=== PATIENT | female | born 1935 | race Caucasian/White ===

== ENCOUNTER 2016-06-16 18:52 | Emergency (ER) | payer MEDICARE, BC ==
[2016-06-16 18:56] VITALS: TEMP 98.4
[2016-06-16 19:13] VITALS: BMI 41.5
[2016-06-16 20:18] LABS: CA OXALATE 3+; LEUKOCYTES/URINE 2+ (NEGATIVE); NITRITE/URINE NEG (NEGATIVE); URINE OCCULT BLOOD 2+ (NEG/TRACE)
[2016-06-16 20:19] LABS: WBC/URINE 40-50 (0-5)
--- NOTE | 2016-06-16 20:26 | EDPRACDOC ---
- General Information Chief Complaint: Altered Mental Status Stated Complaint: HIGH BP - SENT BY HOME HEALTH RN Time Seen by Provider: 06/16/16 19:22 Home Medications: Home Medications Ergocalciferol (Vitamin D2) [Vitamin D2 (ergocalciferol)] 50,000 units PO .QMONTH ON 01/28/13 Nitroglycerin Sublingual Tab [NTG (NitroStat Sublingual Tab)] 1 tab SL Q5MX3 PRN 04/09/13 Furosemide [Lasix] 40 mg PO BID 06/20/13 Pantoprazole Sodium [Protonix] 40 mg PO DAILY #30 tab 07/03/13 Allopurinol [Zyloprim] 100 mg PO DAILY 06/16/16 Alprazolam [Xanax] 0.5 mg PO BID PRN 06/16/16 Aspirin (Enteric Coated) [Ecotrin] 81 mg PO DAILY 06/16/16 Ciprofloxacin HCl [Cipro] 500 mg PO BID #20 tab 06/16/16 Duloxetine [Cymbalta] 60 mg PO DAILY 06/16/16 HydrALAZINE (Cardiovascular) [Apresoline] 50 mg PO DAILY 06/16/16 Levetiracetam [Keppra] 500 mg PO BID 06/16/16 METHIMAZOLE (hyperthyroid med) [Tapazole] 5 mg PO DAILY 06/16/16 Metoprolol Succinate (XL) [Toprol Xl] 100 mg PO DAILY 06/16/16 Oxycodone Immediate Release [Oxycodone Immediate Release (OxyIR)] 5 mg PO Q4H PRN 06/16/16 Polyethylene Glycol 3350 [Miralax] 17 gm PO DAILY PRN 06/16/16 Trazodone HCl [Desyrel] 25 mg PO QHS 06/16/16 Valsartan [Diovan] 160 mg PO DAILY 06/16/16 Wheat Dextrin [Benefiber] 1 gm PO DAILY 06/16/16 Allergies/Adverse Reactions: Allergies Allergy/AdvReac Type Severity Reaction Status Date / Time No Known Allergies Allergy Verified 06/16/16 19:06 - History of Present Illness Onset: a while HPI: C/o confusion, changes in vision, frontal HYATT, upper sternal CP radiating into neck (bilat), weakness x 2 days. Denies N/V/D, fever, sob, cough, sore throat, chnages in urine or BM. Med hx = CHF, CAD, prior OK. Home O2 05/12 at 2L. Last stress test on file here is 2012. Symptoms began: Gradually Duration: Since Onset Symptoms Currently: Reports: Still Present Altered Quality: Reports: Confusion Altered Severity: Reports: Mild Recent Symptoms of: Reports: None Associated signs and symptoms: Reports: Chest pain, Headache, Weakness ED Past Medical History - History Reviewed Yes Nurses notes reviewed and agree except as marked - Patient Medical History Cardiac History: Reports: Coronary Artery Disease, Atrial Fibrillation, Hypertension, Heart Attack (MULTIPLE CORONARY STENOSIS), Cardiac Catheterization , Hypercholesterolemia GI/ History: Reports: Kidney Stones (HX AND PRESENT NOW), Ulcer (HX) Musculoskeletal History: Reports: Gout, Osteoarthritis Systemic History: Reports: Diabetes, Hyperthyroidism. Denies: Cancer Surgical History: Reports: Hysterectomy, Cardiac Catheterization - Family Medical History Reports: Diabetes (SISTER), Cancer (MOTHER), Cardiac Disorders (DAD). Denies: Hypertension, Stroke EDM Review of Systems - Review of Systems ROS Negative Except as Marked: Yes All systems reviewed and were negative except as marked Constitutional: Weakness Cardiovascular: Chest Pain Neurological: Headache, Weakness, Memory Changes, Changes in Orientation - Physical Exam Constitutional: No apparent distress, Alert Oriented to: Time, Person, Place Last recorded Vital Signs: Last Vital Signs Temp 98.4 F 06/16/16 18:55 Pulse 60 06/16/16 18:55 Resp 18 06/16/16 18:55 BP 208/93 H 06/16/16 18:55 Pulse Ox 91 06/16/16 18:55 Oxygen Pulse Oxygen Saturation 91 O2 Device Nasal Cannula Oxygen Flow Rate 2 Fraction of Inspired Oxygen ( FIO2) - HEENT Head: Normal Eye Exam: negative: Conjunctival Injection, Scleral Icterus Oropharynx: negative: Drooling TMJ: Normal Nose: No Symptoms Reported Neck: Normal - Respiratory/Cardiovascular Respiratory: Normal - CTA Cardiovascular: Normal - GI Tenderness: Non tender - Musculoskeletal Back: Normal Extremities: Normal - Neurologic Motor Function: Normal Cranial Nerve: Normal Cerebellar: Normal Mood Description: Normal Thought: Coherent Perception: Normal - Results 06/16/16 20:15 06/16/16 20:15 Urine Color Dark yellow 06/16/16 20:00 Urine Clarity Sl cldy 06/16/16 20:00 Urine pH 6.0 (5.0-8.0) 06/16/16 20:00 Ur Specific [place] 1.025 (1.003-1.035) 06/16/16 20:00 Urine Protein 2+ (NEG/TRACE) H 06/16/16 20:00 Urine Glucose (UA) Trace (NEGATIVE) 06/16/16 20:00 Urine Ketones Neg (NEGATIVE) 06/16/16 20:00 Urine Occult Blood 2+ (NEG/TRACE) H 06/16/16 20:00 Urine Nitrite Neg (NEGATIVE) 06/16/16 20:00 Urine Bilirubin Neg (NEGATIVE) 06/16/16 20:00 Urine Urobilinogen <2.0 MG/DL (0-1) 06/16/16 20:00 Ur Leukocyte Esterase 2+ (NEGATIVE) H 06/16/16 20:00 Urine RBC 10-20 (0-5) H 06/16/16 20:00 Urine WBC 40-50 (0-5) H 06/16/16 20:00 Ur Epithelial Cells 2+ 06/16/16 20:00 Calcium Oxalate Crystal 3+ 06/16/16 20:00 Urine Bacteria 1+ (NEG/FEW) H 06/16/16 20:00 Urine Mucus Mod (NEG/OCC) H 06/16/16 20:00 Lab Results 06/16/16 20:00 Urine Color Dark yellow Urine Clarity Sl cldy Urine pH 6.0 Ur Specific [place] 1.025 Urine Protein 2+ H Urine Glucose (UA) Trace Urine Ketones Neg Urine Occult Blood 2+ H Urine Nitrite Neg Urine Bilirubin Neg Urine Urobilinogen <2.0 Ur Leukocyte Esterase 2+ H Urine RBC 10-20 H Urine WBC 40-50 H Ur Epithelial Cells 2+ Calcium Oxalate Crystal 3+ Urine Bacteria 1+ H Urine Mucus Mod H - Diagnostic Imaging Chest Image interpreted by: Radiologist EXAM: PORTABLE CHEST 1 VIEW COMPARISON: Single view of the chest 04/12/2016. FINDINGS: There is cardiomegaly without edema. Lungs clear. No pneumothorax or pleural effusion. IMPRESSION: Cardiomegaly without acute disease. Electronically Signed By: Clayton Johns M.D. On: 06/16/2016 20:24 Head Image interpreted by: Radiologist EXAM: CT HEAD WITHOUT CONTRAST TECHNIQUE: Contiguous axial images were obtained from the base of the skull through the vertex without intravenous contrast. COMPARISON: 04/12/2016 FINDINGS: Focal hypoattenuation in the posterior left parietal lobe reflects the evolution non left parietal hemorrhage noted on the prior CT. There are no parenchymal masses or mass effect. There is no evidence of a recent cortical infarct. Ventricles are normal in size, for this patient's age, and normal in configuration. There are no extra-axial masses or abnormal fluid collections. There is no intracranial hemorrhage. Sinuses and mastoid air cells are clear. IMPRESSION: 1. No acute intracranial abnormalities. Electronically Signed By: Yaya Barrientos M.D. On: 06/16/2016 20:33 Decision Time to Discharge: 21:00 - Departure Disposition: Home Condition: Stable Final Diagnosis: UTI (urinary tract infection) Qualifiers: Urinary tract infection type: site unspecified Hematuria presence: with hematuria Qualified Code(s): N39.0 - Urinary tract infection, site not specified Instructions: Urinary Tract Infection in Women (ED), Dysuria Education/Counseling Given To: Patient, Family Member Education/Counseling Given Regarding: Diagnosis, Treatment, Prognosis, Follow Up Referrals: Hammad Gregory MD [Primary Care Provider] - One Week Prescriptions: New Ciprofloxacin HCl [Cipro] 500 mg PO BID #20 tab No Action Ergocalciferol (Vitamin D2) [Vitamin D2 (ergocalciferol)] 50,000 units PO .QMONTH ON 1ST Nitroglycerin Sublingual Tab [NTG (NitroStat Sublingual Tab)] 1 tab SL Q5MX3 PRN PRN Reason: Chest Pain Or Discomfort Furosemide [Lasix] 40 mg PO BID Pantoprazole Sodium [Protonix] 40 mg PO DAILY #30 tab Valsartan [Diovan] 160 mg PO DAILY Levetiracetam [Keppra] 500 mg PO BID Aspirin (Enteric Coated) [Ecotrin] 81 mg PO DAILY Trazodone HCl [Desyrel] 25 mg PO QHS Polyethylene Glycol 3350 [Miralax] 17 gm PO DAILY PRN PRN Reason: Constipation HydrALAZINE (Cardiovascular) [Apresoline] 50 mg PO DAILY Duloxetine [Cymbalta] 60 mg PO DAILY Allopurinol [Zyloprim] 100 mg PO DAILY Metoprolol Succinate (XL) [Toprol Xl] 100 mg PO DAILY METHIMAZOLE (hyperthyroid med) [Tapazole] 5 mg PO DAILY Oxycodone Immediate Release [Oxycodone Immediate Release (OxyIR)] 5 mg PO Q4H PRN PRN Reason: Pain Wheat Dextrin [Benefiber] 1 gm PO DAILY Alprazolam [Xanax] 0.5 mg PO BID PRN PRN Reason: Anxiety Additional Instructions: Follow up with primary care. Take cipro for urinary tract infection. Return to Ed for any new or worsening symptoms.
[2016-06-16 20:35] LABS: AUTOMATED LYMPH 26.7 % (17-44); AUTOMATED MONOCYTE 8.1 % (3-10); AUTOMATED NEUTROPHIL 60.2 % (45-76); MPV 8.9 fL (7.4-10.4)
--- NOTE | 2016-06-16 20:36 | DIRPT ---
CLINICAL DATA: Altered mental status. Confusion. History of a brain aneurysm. EXAM: CT HEAD WITHOUT CONTRAST TECHNIQUE: Contiguous axial images were obtained from the base of the skull through the vertex without intravenous contrast. COMPARISON: 04/12/2016 FINDINGS: Focal hypoattenuation in the posterior left parietal lobe reflects the evolution non left parietal hemorrhage noted on the prior CT. There are no parenchymal masses or mass effect. There is no evidence of a recent cortical infarct. Ventricles are normal in size, for this patient's age, and normal in configuration. There are no extra-axial masses or abnormal fluid collections. There is no intracranial hemorrhage. Sinuses and mastoid air cells are clear. IMPRESSION: 1. No acute intracranial abnormalities. Electronically Signed By: Yaya Barrientos M.D. On: 06/16/2016 20:33
[2016-06-16 20:44] LABS: BLOOD UREA NITROGEN 10 MG/DL (7-17); CALC CORRECTED 9.7 MG/DL (8.4-10.2); CALCIUM 9.3 MG/DL (8.4-10.2); CALCULATED OSMOLALITY 281 MOs/Kg (270-290); CHLORIDE 106 mEq/L (98-107); GLUCOSE 104 mg/dL (70-99); SODIUM LEVEL 147 mEq/L (137-146); TOTAL PROTEIN 6.3 G/DL (6.3-8.2)
[2016-06-16 20:48] LABS: PARTIAL THROMB. TIME 24.5 SEC (22-35)
[2016-06-16] MEDS ORDERED: CIPROFLOXACIN HCL 500 MG TAB PO ONE (21:11)
[2016-06-16 21:37] VITALS: BP 170/88; PULSE 68
== END 2016-06-16 21:35 | disposition home or self-care (01) ==
LOC: ED 18:52
DX: N39.0 Urinary tract infection, site not specified (principal); R31.9 Hematuria, unspecified
CPT/HCPCS: 36415; 70450; 71010; 80053; 81001; 84484; 85025; 85610; 85730; 87086; 93005; 99283; A9270; J3490

== ENCOUNTER 2016-06-20 16:28 | Inpatient (IN) | payer MEDICARE, BC ==
--- NOTE | 2016-06-20 16:39 | EDPRACDOC ---
- General Information Stated Complaint: AMS Time Seen by Provider: 06/20/16 16:38 Information Source: Call Center Recruiter Mode Of Arrival: Ambulance Home Medications: Home Medications Ergocalciferol (Vitamin D2) [Vitamin D2 (ergocalciferol)] 50,000 units PO .QMONTH ON 01/28/13 Nitroglycerin Sublingual Tab [NTG (NitroStat Sublingual Tab)] 1 tab SL Q5MX3 PRN 04/09/13 Furosemide [Lasix] 40 mg PO BID 06/20/13 Pantoprazole Sodium [Protonix] 40 mg PO DAILY #30 tab 07/03/13 Allopurinol [Zyloprim] 100 mg PO DAILY 06/16/16 Alprazolam [Xanax] 0.5 mg PO BID PRN 06/16/16 Aspirin (Enteric Coated) [Ecotrin] 81 mg PO DAILY 06/16/16 Ciprofloxacin HCl [Cipro] 500 mg PO BID #20 tab 06/16/16 Duloxetine [Cymbalta] 60 mg PO DAILY 06/16/16 HydrALAZINE (Cardiovascular) [Apresoline] 50 mg PO DAILY 06/16/16 Levetiracetam [Keppra] 500 mg PO BID 06/16/16 METHIMAZOLE (hyperthyroid med) [Tapazole] 5 mg PO DAILY 06/16/16 Metoprolol Succinate (XL) [Toprol Xl] 100 mg PO DAILY 06/16/16 Oxycodone Immediate Release [Oxycodone Immediate Release (OxyIR)] 5 mg PO Q4H PRN 06/16/16 Polyethylene Glycol 3350 [Miralax] 17 gm PO DAILY PRN 06/16/16 Trazodone HCl [Desyrel] 25 mg PO QHS 06/16/16 Valsartan [Diovan] 160 mg PO DAILY 06/16/16 Wheat Dextrin [Benefiber] 1 gm PO DAILY 06/16/16 Amiodarone [Cordarone, Pacerone] 200 mg PO .DAILY SEE COMMENTS 06/20/16 Allergies/Adverse Reactions: Allergies Allergy/AdvReac Type Severity Reaction Status Date / Time No Known Allergies Allergy Verified 06/16/16 19:06 - History of Present Illness Exact Onset of Symptoms: Unknown HPI: FAMILY SPOKE TO PT BY PHONE YESTERDAY, PT SEEMED CONFUSED. TODAY, NON AMBULATORY AND NON VERBAL. PT NORMALLY LIVES INDEPENDENT. ED Past Medical History - History Reviewed Yes Nurses notes reviewed and agree except as marked - Patient Medical History Neurological History: Reports: Cerebrovascular Accident (HEMORRHAGIC STROKE) Cardiac History: Reports: Coronary Artery Disease, Atrial Fibrillation, Hypertension, Heart Attack (MULTIPLE CORONARY STENOSIS), Cardiac Catheterization , Hypercholesterolemia GI/ History: Reports: Kidney Stones (HX AND PRESENT NOW), Ulcer (HX) Musculoskeletal History: Reports: Gout, Osteoarthritis Psychological History: Reports: Depression Systemic History: Reports: Diabetes, Hyperthyroidism. Denies: Cancer Surgical History: Reports: Hysterectomy, Cardiac Catheterization - Family Medical History Reports: Diabetes (SISTER), Cancer (MOTHER), Cardiac Disorders (DAD). Denies: Hypertension, Stroke - Social Medical History Smoking Status: Never smoker EDM Review of Systems - Review of Systems ROS Negative Except as Marked: Yes All systems reviewed and were negative except as marked ROS Unobtainable: Yes Review of systems cannot be obtained due to the patient's medical condition (AMS) - Physical Exam Constitutional: Confused, Decreased Consciousness, Somnolent, Well nourished Oriented to: Person, Unable to Test Last recorded Vital Signs: Oxygen Pulse Oxygen Saturation O2 Device Oxygen Flow Rate Fraction of Inspired Oxygen ( FIO2) - HEENT Head: Normal Eye Exam: Normal Oropharynx: Normal. negative: Membranes Dry Neck: Normal - Respiratory/Cardiovascular Respiratory: Normal - CTA Cardiovascular: Normal - GI Auscultation: Normal Palpation: Normal Tenderness: Non tender - Bladder: Normal - Musculoskeletal Back: Normal. negative: CVA Tenderness, Thoracic TTP, Lumbar TTP Extremities: Normal. negative: Pedal Edema - Integumentary Skin: Normal, Warm, Dry - Neurologic Memory Impaired: Unable to Test (CONFUSED) Motor Function: Other (MOVES ALL EXT) Mood Description: Flat Thought: negative: Coherent - Re-evaluation Re-evaluation 3 Re-evaluation Time: 21:15 (STILL CONFUSED, TROUBLE AMBULATING. BP STILL RISING. NOT A CANDIDATE FOR OUTPAT.) - Results 06/20/16 17:18 06/20/16 17:18 - EKG EKG #1 EKG Time: 17:17 -: Yes EKG interpreted by me Rate: bpm: 57 [place]: Normal Rhythm: SB Block: None Hypertrophy: None ST: Nonsp - Diagnostic Imaging Head Image interpreted by: Radiologist Patient Name: AUGUST VAZQUEZ LOC: ED : 1935 AGE: 81 Order Date:06/20/16 Date of Service:10/29 Report # [id number] Ord Physician: Denise Almonte MD Exam # [id number] Emergency Physician: Denise Almonte MD Exam(s): [id number] CT/CT HEAD W/O CM CLINICAL DATA: Altered mental status. Recent hemorrhagic CVA EXAM: CT HEAD WITHOUT CONTRAST TECHNIQUE: Contiguous axial images were obtained from the base of the skull through the vertex without intravenous contrast. COMPARISON: 06/16/2016 FINDINGS: Area of encephalomalacia in the left occipital lobe in area of old infarct. No acute infarction. No hemorrhage or hydrocephalus. No mass lesion or midline shift. IMPRESSION: No acute intracranial abnormality. Electronically Signed By: Daryn Storey M.D. On: 06/20/2016 17:48 Electronically Signed By: Daryn Storey MD Electronically Signed Date/Time: 751 Dictate Date/Time: 06/20/161746 Technologist: Sofi Tejeda Transcribed By: Amauri Transcribed Date/Time: 06/20/16 1748 - Departure Disposition: Admit IP To This Hospital Final Diagnosis: Altered mental status, Ambulatory dysfunction, Hypertension Urinary tract infection Qualifiers: Urinary tract infection type: acute cystitis Hematuria presence: without hematuria Qualified Code(s): N30.00 - Acute cystitis without hematuria Instructions: Urinary Tract Infection in Women (ED), Dysuria, Chronic Hypertension (ED) Referrals: Hammad Gregory MD [Primary Care Provider] - One Week Prescriptions: No Action Ergocalciferol (Vitamin D2) [Vitamin D2 (ergocalciferol)] 50,000 units PO .QMONTH ON 1ST Nitroglycerin Sublingual Tab [NTG (NitroStat Sublingual Tab)] 1 tab SL Q5MX3 PRN PRN Reason: Chest Pain Or Discomfort Furosemide [Lasix] 40 mg PO BID Pantoprazole Sodium [Protonix] 40 mg PO DAILY #30 tab Valsartan [Diovan] 160 mg PO DAILY Levetiracetam [Keppra] 500 mg PO BID Aspirin (Enteric Coated) [Ecotrin] 81 mg PO DAILY Trazodone HCl [Desyrel] 25 mg PO QHS Polyethylene Glycol 3350 [Miralax] 17 gm PO DAILY PRN PRN Reason: Constipation HydrALAZINE (Cardiovascular) [Apresoline] 50 mg PO DAILY Duloxetine [Cymbalta] 60 mg PO DAILY Allopurinol [Zyloprim] 100 mg PO DAILY Metoprolol Succinate (XL) [Toprol Xl] 100 mg PO DAILY METHIMAZOLE (hyperthyroid med) [Tapazole] 5 mg PO DAILY Oxycodone Immediate Release [Oxycodone Immediate Release (OxyIR)] 5 mg PO Q4H PRN PRN Reason: Pain Wheat Dextrin [Benefiber] 1 gm PO DAILY Alprazolam [Xanax] 0.5 mg PO BID PRN PRN Reason: Anxiety Ciprofloxacin HCl [Cipro] 500 mg PO BID #20 tab Amiodarone [Cordarone, Pacerone] 200 mg PO .DAILY SEE COMMENTS Decision to Admit Time: 22:00 Decision to admit date: 06/20/16 Decision to admit: from ED - Physician Consulted Hospitalist Time Called: 21:16 Provider Called: Geoff Bush Time Director Talent Returned Call: 22:00
[2016-06-20 17:41] LABS: AUTOMATED EOSINOPHIL 3.2 % (0-5); AUTOMATED LYMPH 23.1 % (17-44); AUTOMATED MONOCYTE 9.7 % (3-10)
[2016-06-20 17:49] LABS: PARTIAL THROMB. TIME 24.7 SEC (22-35); PT-INR 1.1
--- NOTE | 2016-06-20 17:51 | DIRPT ---
CLINICAL DATA: Altered mental status. Recent hemorrhagic CVA EXAM: CT HEAD WITHOUT CONTRAST TECHNIQUE: Contiguous axial images were obtained from the base of the skull through the vertex without intravenous contrast. COMPARISON: 06/16/2016 FINDINGS: Area of encephalomalacia in the left occipital lobe in area of old infarct. No acute infarction. No hemorrhage or hydrocephalus. No mass lesion or midline shift. IMPRESSION: No acute intracranial abnormality. Electronically Signed By: Daryn Storey M.D. On: 06/20/2016 17:48
[2016-06-20 17:55] LABS: BLOOD UREA NITROGEN 12 MG/DL (7-17); CALC CORRECTED 9.7 MG/DL (8.4-10.2); CALCULATED OSMOLALITY 282 MOs/Kg (270-290); CHLORIDE 106 mEq/L (98-107); GLUCOSE 110 mg/dL (70-99); SODIUM LEVEL 146 mEq/L (137-146); TOTAL PROTEIN 5.9 G/DL (6.3-8.2)
--- NOTE | 2016-06-20 17:56 | DIRPT ---
CLINICAL DATA: Altered mental status, confusion. EXAM: PORTABLE CHEST 1 VIEW COMPARISON: 06/16/2016 FINDINGS: There is bibasilar opacities, likely atelectasis. Heart is mildly enlarged vascular congestion. No visible effusions or acute bony abnormality. IMPRESSION: Cardiomegaly with vascular congestion. Bibasilar opacities, likely atelectasis. Electronically Signed By: Daryn Storey M.D. On: 06/20/2016 17:53
[2016-06-20 18:23] LABS: LEUKOCYTES/URINE 2+ (NEGATIVE); NITRITE/URINE NEG (NEGATIVE); RBC/URINE 20-30 (0-5); URINE OCCULT BLOOD 1+ (NEG/TRACE); WBC/URINE 20-30 (0-5)
[2016-06-20 18:44] LABS: ALLEN'S TEST PASS; BEb 10.2 (+/- 2); TCO2 39.9 MMOL/L (23-27)
[2016-06-20 18:45] LABS: ABG Draw Site Right Radial
[2016-06-20] MEDS ORDERED: CEFTRIAXONE 1 GM in D5W 100 ML IV ONE (20:54)
[2016-06-20] MEDS ORDERED: ENALAPRILAT 1.25 MG/ML VIAL IV ONE (21:17)
[2016-06-20] MEDS ORDERED: NS 1,000 ML IV ONE (21:23)
[2016-06-20] MEDS ORDERED: LABETALOL 20 MG/4 ML SYRINGE IV ONE (22:44)
[2016-06-20] MEDS ORDERED: NITROGLYCERINE 2 % OINTMENT PACK TOP ONE (22:45)
[2016-06-20] MEDS ORDERED: ENOXAPARIN 40 MG/0.4 ML PFS SQ SCH ×2 (23:00→23:45)
[2016-06-20] MEDS ORDERED: PEG-ELECTROLYTE 17 GM PACK PO PRN (23:16)
[2016-06-20] MEDS ORDERED: ALPRAZOLAM 0.5 MG TAB PO PRN (23:16)
[2016-06-20] MEDS ORDERED: OXYCODONE HCL 5 MG TABLET PO PRN (23:16)
[2016-06-20] MEDS ORDERED: ALBUTEROL 0.083% 3 ML NEB NEB PRN (23:17)
[2016-06-20] MEDS ORDERED: ONDANSETRON HCL 4 MG/2 ML VIAL IV PRN (23:17)
[2016-06-20] MEDS ORDERED: ACETAMINOPHEN 325 MG/TAB TABLET PO PRN (23:17)
--- NOTE | 2016-06-20 23:23 | HISTPHYS ---
- Chief Complaint Altered mental status - History of Present Illness This is an 81-year-old female with a history of hemorrhagic CVA, who was brought to the emergency department by family with concerns for confusion, global weakness and concern for recurrent stroke. Workup in the emergency department revealed no acute abnormality on CT, but she does have a urinary tract infection. Notably, she was seen here in the emergency department about 4 days ago and diagnosed with a urinary tract infection, was sent home with p.o. ciprofloxacin at that time. Currently, the patient tells me that she admits to feeling weak, and being confused earlier in the day, at least that is what she remembers her family telling her. No other family is available at the time, so history is taken from the patient as well as from the emergency department physician. Patient denies any chest pain, shortness of breath, nausea, vomiting, fevers, chills, sick contacts renew medication. - Medical History Cardiac History: Reports: Coronary Artery Disease, Atrial Fibrillation, Hypertension, Heart Attack (MULTIPLE CORONARY STENOSIS), Cardiac Catheterization , Hypercholesterolemia GI/ History: Reports: Kidney Stones (HX AND PRESENT NOW), Ulcer (HX) Musculoskeletal History: Reports: Gout, Osteoarthritis Systemic History: Reports: Diabetes, Hyperthyroidism. Denies: Cancer Neurological History: Reports: Cerebrovascular Accident (HEMORRHAGIC STROKE) Psychological History: Reports: Depression - Surgical History Reports: Hysterectomy, Cardiac Catheterization - Medictions/Allergies Allergies No Known Allergies Allergy (Verified 06/16/16 19:06) Home Medications Ergocalciferol (Vitamin D2) [Vitamin D2 (ergocalciferol)] 50,000 units PO .QMONTH ON 01/28/13 Nitroglycerin Sublingual Tab [NTG (NitroStat Sublingual Tab)] 1 tab SL Q5MX3 PRN 04/09/13 Furosemide [Lasix] 40 mg PO BID 06/20/13 Pantoprazole Sodium [Protonix] 40 mg PO DAILY #30 tab 07/03/13 Allopurinol [Zyloprim] 100 mg PO DAILY 06/16/16 Alprazolam [Xanax] 0.5 mg PO BID PRN 06/16/16 Aspirin (Enteric Coated) [Ecotrin] 81 mg PO DAILY 06/16/16 Ciprofloxacin HCl [Cipro] 500 mg PO BID #20 tab 06/16/16 Duloxetine [Cymbalta] 60 mg PO DAILY 06/16/16 HydrALAZINE (Cardiovascular) [Apresoline] 50 mg PO DAILY 06/16/16 Levetiracetam [Keppra] 500 mg PO BID 06/16/16 METHIMAZOLE (hyperthyroid med) [Tapazole] 5 mg PO DAILY 06/16/16 Metoprolol Succinate (XL) [Toprol Xl] 100 mg PO DAILY 06/16/16 Oxycodone Immediate Release [Oxycodone Immediate Release (OxyIR)] 5 mg PO Q4H PRN 06/16/16 Polyethylene Glycol 3350 [Miralax] 17 gm PO DAILY PRN 06/16/16 Trazodone HCl [Desyrel] 25 mg PO QHS 06/16/16 Valsartan [Diovan] 160 mg PO DAILY 06/16/16 Wheat Dextrin [Benefiber] 1 gm PO DAILY 06/16/16 Amiodarone [Cordarone, Pacerone] 200 mg PO .DAILY SEE COMMENTS 06/20/16 - Family History Reports: Diabetes (SISTER), Cancer (MOTHER), Cardiac Disorders (DAD). Denies: Hypertension, Stroke - Social History Smoking Status: Never smoker - Review of Systems Yes All systems reviewed and were negative except as marked (And as mentioned in the history of present illness above.) - Physical Exam Vital Signs: Initial Vitals Temperature 97.4 F L 06/20/16 17:13 Pulse Rate 54 L 06/20/16 17:13 Respiratory Rate 18 06/20/16 17:13 Blood Pressure 173/74 06/20/16 17:13 Pulse Oxygen Saturation 99 06/20/16 17:13 Constitutional: No apparent distress Oriented to: Time, Person, Place Exam: Morbidly obese woman lying in a stretcher in the emergency department. - HEENT Head: Normal (normocephalic,atraumatic, trachea midline) Eye: Normal (EOMI, Sclera white) Oropharynx: Normal (moist) Nose: No Symptoms Reported (without discharge or bleeding) Respiratory: Normal - CTA (Clear to auscultation bilaterally, no wheezing,rales or rhonchi. No use of accessory muscles), Diminished Cardiovascular: Normal (RRR, no murmurs, rubs or gallops) - GI Palpation: Normal (soft, non distended and nontender) - Musculoskeletal Extremities: Normal (normal tone, no cyanosis or edema) - Neurologic Memory is slightly impaired, speech is kind of slow. She is globally weak, but does not have any focal neurologic abnormality on examination tonight. - Focused CV Perfusion Exam Vital Signs: Last Vital Signs Temp 97.4 F L 06/20/16 18:00 Pulse 60 06/20/16 22:52 Resp 20 06/20/16 22:52 BP 162/70 06/20/16 22:52 Pulse Ox 100 06/20/16 22:52 - Lab Results Laboratory Tests 06/20/16 06/20/16 06/20/16 17:18 17:18 17:18 WBC 4.2 Hgb 10.5 L Hct 33.2 L pH pCO2 pO2 Potassium 3.6 Troponin I 0.02 Cwr-[id number]-Ttjoxbozerz Pept 4920 H 06/20/16 06/20/16 18:40 20:35 WBC Hgb Hct pH 7.380 pCO2 64.0 H pO2 42.0 L* Potassium Troponin I 0.02 Iyr-A-Vlnzidrlrbk Pept - Diagnostic Findings CT scan of the head without any acute abnormality, no evidence of stroke or hemorrhage. Chest x-ray was reviewed, there is some evidence of fluid overload , no sakshi effusion or pneumonia. - Assessment (1) Metabolic encephalopathy G93.41 - METABOLIC ENCEPHALOPATHY Acute Patient presented with confusion, global weakness. Likely due to urinary tract infection, treating as below. (2) Urinary tract infection N39.0 - URINARY TRACT INFECTION, SITE NOT SPECIFIED Acute Qualifiers: Urinary tract infection type: acute cystitis Hematuria presence: without hematuria Qualified Code(s): N30.00 - Acute cystitis without hematuria Patient was empirically started on p.o. ciprofloxacin 4 days ago after visit to the emergency department for confusion. That urine culture from that day, with mixed vaginal meenakshi and no evidence of urinary tract infection. Other urinalysis is obtained today, is of normal once again, so she will be treated empirically with IV Rocephin, urine culture has been obtained once again, this will be followed up on. (3) Hypertension I10 - ESSENTIAL (PRIMARY) HYPERTENSION Acute Continue home medications. (4) Diabetes mellitus E11.9 - TYPE 2 DIABETES MELLITUS WITHOUT COMPLICATIONS Active Diabetic diet when eating, check hemoglobin A1c and urine microalbumin. Sliding scale insulin has been ordered with q.a.c. and HS blood sugar checks. (5) Atrial fibrillation I48.91 - UNSPECIFIED ATRIAL FIBRILLATION Acute (6) Pulmonary edema J81.1 - CHRONIC PULMONARY EDEMA Acute Unclear to me whether she has a formal diagnosis of CHF, though she is on beta-karo and diuretic at home. She does seem fluid overloaded tonight with some pulmonary edema, peripheral edema and elevated BNP. As such, will continue her home medications but give her a dose of IV Lasix tonight. Consider echocardiogram while here in the hospital as well.
[2016-06-20] MEDS ORDERED: hydrALAZINE 20 MG/ML VIAL IV PRN (23:26)
[2016-06-21] MEDS ORDERED: FUROSEMIDE 40 MG/4 ML VIAL IV ONE
[2016-06-21] MEDS ORDERED: ALBUTEROL 0.083% 3 ML NEB NEB PRN (00:23)
[2016-06-21] MEDS ORDERED: Vaccine Screening Complete SCH (01:00)
[2016-06-21] MEDS: ENOXAPARIN 60 MG/0.6 ML PFS SQ SCH ×2 (01:33→17:18)
[2016-06-21] MEDS: ALPRAZOLAM 0.5 MG TAB PO PRN ×2 (03:22→19:44)
[2016-06-21] MEDS: PANTOPRAZOLE 40 MG TAB PO SCH (05:24)
[2016-06-21] MEDS: METHIMAZOLE 5 MG TAB PO SCH (07:35)
[2016-06-21] MEDS: VALSARTAN 160 MG TAB PO SCH (07:35)
[2016-06-21] MEDS: ALLOPURINOL 100 MG TAB PO SCH (07:35)
[2016-06-21] MEDS: METOPROLOL (TOPROL-XL) 100 MG TAB PO SCH (07:35)
[2016-06-21] MEDS: AMIODARONE 200 MG TAB PO SCH (07:35)
[2016-06-21] MEDS: DULOXETINE 60 MG CAPSULE PO SCH (07:35)
[2016-06-21] MEDS: LEVETIRACETAM 250 MG TAB PO SCH ×2 (07:35→19:39)
[2016-06-21] MEDS ORDERED: LEVETIRACETAM 500 MG PO SCH (09:00)
[2016-06-21] MEDS: OXYCODONE HCL 5 MG TABLET PO PRN ×2 (10:48→17:19)
[2016-06-21] MEDS ORDERED: ONDANSETRON HCL 4 MG/2 ML VIAL IV PRN (11:44)
[2016-06-21] MEDS ORDERED: hydrALAZINE 20 MG/ML VIAL IV PRN ×2 (11:45→15:16)
--- NOTE | 2016-06-21 15:20 | GENMEDPROG ---
Subjective Note: Patient in bed, sleepy but arousable. Oriented to self and place, follows commands. Acutely ill but not toxic-appearing. Very weak and fatigued p.o. intake poor Notes Reviewed: Yes: Events from last night noted and discussed with Clinical Staff Current Medication List: Reviewed Currently: Reports: DIAZ, SOB, Reflux Sx DVT Prophylaxis: Yes - Physical Examination Vital Signs and I&O: Last Vital Signs Temp 99.1 F 06/21/16 12:41 Pulse 64 06/21/16 12:41 Resp 20 06/21/16 12:41 BP 180/74 H 06/21/16 12:41 Pulse Ox 92 06/21/16 12:41 Oxygen Pulse Oxygen Saturation 92 O2 Device Nasal Cannula Oxygen Flow Rate 2 Fraction of Inspired Oxygen ( FIO2) Intake & Output 06/18/16 06/19/16 06/20/16 06/21/16 23:59 23:59 23:59 23:59 Intake Total 1100 Output Total 2625 Balance 1100 -2625 Patient's weight 108.771 kg General: Alert, Cooperative, Mild distress HEENT: Normal, PERRLA, EOMI, Anicteric Sclera Neck: Non-tender, Limited range of motion Lymphatics: Normal Respiratory: Normal - CTA (Clear to auscultation bilaterally, no wheezing,rales or rhonchi. No use of accessory muscles), Diminished, Rhonchi Cardiovascular: Regular rate, Normal S1, Normal S2, Murmurs GI: Normal bowel sounds, Soft, Non tender, No hepatospenomegaly, No masses, Obese Extremities/Musculoskeletal: Edema, DJD Skin: Warm,Dry and Intact, No rashes, No breakdown, No significant lesion Neurological: Normal speech, Cranial nerves 3-12 NL Psych/Mental Status: Anxious, Confused, Somnolent Lab/DI/Studies Reviewed: Allergies No Known Allergies Allergy (Verified 06/16/16 19:06) Last Vital Signs Temp 99.1 F 06/21/16 12:41 Pulse 64 06/21/16 12:41 Resp 20 06/21/16 12:41 BP 180/74 H 06/21/16 12:41 Pulse Ox 92 06/21/16 12:41 06/20/16 17:18 06/20/16 17:18 Abnormal Lab Results 06/20/16 06/20/16 06/20/16 17:18 17:18 17:18 RBC 3.68 L Hgb 10.5 L Hct 33.2 L MCHC 31.5 L RDW 16.1 H pCO2 pO2 HCO3 Total CO2 Base Excess Glucose 110 H Ypu-G-Fgapwcobhfr Pept 4920 H Total Protein 5.9 L Albumin 3.3 L Urine Protein Urine Occult Blood Ur Leukocyte Esterase Urine RBC Urine WBC Urine Bacteria 06/20/16 06/20/16 18:02 18:40 RBC Hgb Hct MCHC RDW pCO2 64.0 H pO2 42.0 L* HCO3 37.9 H Total CO2 39.9 H Base Excess 10.2 H Glucose Syf-L-Puqrmriuksr Pept Total Protein Albumin Urine Protein 1+ H Urine Occult Blood 1+ H Ur Leukocyte Esterase 2+ H Urine RBC 20-30 H Urine WBC 20-30 H Urine Bacteria 2+ H - Assessment (1) Metabolic encephalopathy Acute G93.41 - METABOLIC ENCEPHALOPATHY Comment/Plan: Continue supportive care, minimize sedation, avoid anticholinergics. According to the mentation slowly improving. (2) Urinary tract infection Acute N39.0 - URINARY TRACT INFECTION, SITE NOT SPECIFIED Qualifiers: Urinary tract infection type: acute cystitis Hematuria presence: without hematuria Qualified Code(s): N30.00 - Acute cystitis without hematuria Comment/Plan: Continue IV Rocephin await final culture (3) Hypertension Chronic I10 - ESSENTIAL (PRIMARY) HYPERTENSION Qualifiers: Hypertension type: essential hypertension Qualified Code(s): I10 - Essential (primary) hypertension Comment/Plan: Continue home medications. Keep SBP less than 140 (4) Diabetes mellitus Active E11.9 - TYPE 2 DIABETES MELLITUS WITHOUT COMPLICATIONS Comment/Plan: Continue ADA diet, monitor sugar continue sliding scale regular insulin (5) Atrial fibrillation Acute I48.91 - UNSPECIFIED ATRIAL FIBRILLATION Comment/Plan: Continue home meds, keep K more than 4 magnesium more than 2 (6) CAD (coronary artery disease) Acute I25.10 - ATHSCL HEART DISEASE OF [place] CORONARY ARTERY W/O ANG PCTRS Qualifiers: Coronary Disease-Associated Artery/Lesion type: [place] artery [place] vs. transplanted heart: [place] heart Associated angina: without angina Qualified Code(s): I25.10 - Atherosclerotic heart disease of [place] coronary artery without angina pectoris Comment/Plan: No angina. Continue home meds. (7) Anemia Acute D64.9 - ANEMIA, UNSPECIFIED Qualifiers: Anemia type: unspecified type Qualified Code(s): D64.9 - Anemia, unspecified Comment/Plan: Monitor counts. Case Care Discussed with: Patient, Family, Nursing Staff, Physical Therapy, Network Liaison Education/Counseling Given To: Patient Education/Counseling Given Regarding: Diagnosis, Treatment, Prognosis, Follow Up Total Time: 50 min . Critical Care: No Code: 68512 (12+)
[2016-06-21] MEDS ORDERED: FUROSEMIDE 20 MG/2 ML VIAL IV ONE (16:00)
[2016-06-21] MEDS: ACETAMINOPHEN 325 MG/TAB TABLET PO PRN (17:19)
[2016-06-21] MEDS: TRAZODONE 50 MG TAB PO SCH (19:38)
[2016-06-21] MEDS: CEFTRIAXONE 1 GM in D5W 100 ML IV SCH (22:25)
[2016-06-22] MEDS: PANTOPRAZOLE 40 MG TAB PO SCH (05:31)
[2016-06-22] MEDS: AMIODARONE 200 MG TAB PO SCH (08:15)
[2016-06-22] MEDS: ALLOPURINOL 100 MG TAB PO SCH (08:15)
[2016-06-22] MEDS: VALSARTAN 160 MG TAB PO SCH (08:15)
[2016-06-22] MEDS: LEVETIRACETAM 250 MG TAB PO SCH ×2 (08:15→20:09)
[2016-06-22] MEDS: METHIMAZOLE 5 MG TAB PO SCH (08:15)
[2016-06-22] MEDS: METOPROLOL (TOPROL-XL) 100 MG TAB PO SCH (08:15)
[2016-06-22] MEDS: DULOXETINE 60 MG CAPSULE PO SCH (08:15)
[2016-06-22] MEDS ORDERED: MAGNESIUM HYDROXIDE 30 ML BOTTLE PO PRN (11:45)
[2016-06-22] MEDS ORDERED: BISACODYL 5 MG TAB PO PRN (11:45)
[2016-06-22] MEDS: ALPRAZOLAM 0.5 MG TAB PO PRN (12:14)
[2016-06-22] MEDS: ENOXAPARIN 60 MG/0.6 ML PFS SQ SCH (17:44)
--- NOTE | 2016-06-22 18:26 | GENMEDPROG ---
Subjective Note: Patient in bed sleepy but arousable, oriented follows commands. Feel very weak and very fatigued. Minimal progress with physical therapy. P.o. intake fluctuates. Denies and difficulties breathing cough phlegm production. Notes Reviewed: Yes: Events from last night noted and discussed with Clinical Staff Current Medication List: Reviewed Currently: Reports: DIAZ, SOB, Reflux Sx DVT Prophylaxis: Yes - Physical Examination Vital Signs and I&O: Last Vital Signs Temp 97.7 F 06/22/16 16:24 Pulse 58 L 06/22/16 18:05 Resp 18 06/22/16 16:24 BP 130/58 L 06/22/16 16:24 Pulse Ox 90 L 06/22/16 16:24 Oxygen Pulse Oxygen Saturation 90 O2 Device Nasal Cannula Oxygen Flow Rate 2 Fraction of Inspired Oxygen ( FIO2) Intake & Output 06/19/16 06/20/16 06/21/16 06/22/16 23:59 23:59 23:59 23:59 Intake Total 1527 571 0203 Output Total 3125 800 Balance 1100 -3025 404 Patient's weight 108.771 kg 108.363 kg General: Alert, Cooperative, Mild distress HEENT: Normal, PERRLA, EOMI, Anicteric Sclera Neck: Non-tender, Limited range of motion Lymphatics: Normal Respiratory: Normal - CTA (Clear to auscultation bilaterally, no wheezing,rales or rhonchi. No use of accessory muscles), Diminished, Rhonchi Cardiovascular: Regular rate, Normal S1, Normal S2, Murmurs GI: Normal bowel sounds, Soft, Non tender, No hepatospenomegaly, No masses, Obese Extremities/Musculoskeletal: Edema, DJD Skin: Warm,Dry and Intact, No rashes, No breakdown, No significant lesion Neurological: Normal speech, Cranial nerves 3-12 NL Psych/Mental Status: Anxious, Confused, Somnolent Lab/DI/Studies Reviewed: Allergies No Known Allergies Allergy (Verified 06/16/16 19:06) Last Vital Signs Temp 97.7 F 06/22/16 16:24 Pulse 58 L 06/22/16 18:05 Resp 18 06/22/16 16:24 BP 130/58 L 06/22/16 16:24 Pulse Ox 90 L 06/22/16 16:24 06/20/16 17:18 06/20/16 17:18 - Assessment (1) Metabolic encephalopathy Acute G93.41 - METABOLIC ENCEPHALOPATHY Comment/Plan: Continue supportive care, minimize sedation, avoid anticholinergics. According to the mentation slowly improving. (2) Urinary tract infection Acute N39.0 - URINARY TRACT INFECTION, SITE NOT SPECIFIED Qualifiers: Urinary tract infection type: acute cystitis Hematuria presence: without hematuria Qualified Code(s): N30.00 - Acute cystitis without hematuria Comment/Plan: Continue IV Rocephin await final culture (3) Hypertension Chronic I10 - ESSENTIAL (PRIMARY) HYPERTENSION Qualifiers: Hypertension type: essential hypertension Qualified Code(s): I10 - Essential (primary) hypertension Comment/Plan: Continue home medications. Keep SBP less than 140 (4) Diabetes mellitus Active E11.9 - TYPE 2 DIABETES MELLITUS WITHOUT COMPLICATIONS Comment/Plan: Continue ADA diet, monitor sugar continue sliding scale regular insulin (5) Atrial fibrillation Acute I48.91 - UNSPECIFIED ATRIAL FIBRILLATION Comment/Plan: Continue home meds, keep K more than 4 magnesium more than 2 (6) CAD (coronary artery disease) Acute I25.10 - ATHSCL HEART DISEASE OF [place] CORONARY ARTERY W/O ANG PCTRS Qualifiers: Coronary Disease-Associated Artery/Lesion type: [place] artery [place] vs. transplanted heart: [place] heart Associated angina: without angina Qualified Code(s): I25.10 - Atherosclerotic heart disease of [place] coronary artery without angina pectoris Comment/Plan: No angina. Continue home meds. (7) Anemia Acute D64.9 - ANEMIA, UNSPECIFIED Qualifiers: Anemia type: unspecified type Qualified Code(s): D64.9 - Anemia, unspecified Comment/Plan: Monitor counts. Case Care Discussed with: Patient, Family, Nursing Staff, Respiratory Therapy, Department [employer] Education/Counseling Given To: Patient Education/Counseling Given Regarding: Diagnosis, Treatment, Prognosis, Follow Up Total Time: 50 min, Critical Care: No Code: 58006 (12+)
[2016-06-22] MEDS: TRAZODONE 50 MG TAB PO SCH (20:09)
[2016-06-22] MEDS: OXYCODONE HCL 5 MG TABLET PO PRN (20:09)
[2016-06-22] MEDS: CEFTRIAXONE 1 GM in D5W 100 ML IV SCH (22:35)
[2016-06-23] MEDS ORDERED: CHAPSTICK LIP BALM ONE (03:44)
[2016-06-23 04:28] VITALS: BMI 40.9
[2016-06-23] MEDS: PANTOPRAZOLE 40 MG TAB PO SCH (05:31)
[2016-06-23] MEDS: OXYCODONE HCL 5 MG TABLET PO PRN ×2 (05:34→16:10)
[2016-06-23] MEDS: AMIODARONE 200 MG TAB PO SCH (10:53)
[2016-06-23] MEDS: DULOXETINE 60 MG CAPSULE PO SCH (10:54)
[2016-06-23] MEDS: VALSARTAN 160 MG TAB PO SCH (10:55)
[2016-06-23] MEDS: LEVETIRACETAM 250 MG TAB PO SCH ×2 (10:57→20:08)
[2016-06-23] MEDS: METHIMAZOLE 5 MG TAB PO SCH (10:57)
[2016-06-23] MEDS: METOPROLOL (TOPROL-XL) 100 MG TAB PO SCH (10:58)
[2016-06-23] MEDS: ALLOPURINOL 100 MG TAB PO SCH (10:59)
[2016-06-23] MEDS: ACETAMINOPHEN 325 MG/TAB TABLET PO PRN (14:10)
[2016-06-23] MEDS: ENOXAPARIN 60 MG/0.6 ML PFS SQ SCH (16:11)
--- NOTE | 2016-06-23 19:10 | GENMEDPROG ---
Subjective Note: Patient in bed responsive follows commands, more interactive today. P.o. intake better. Some progress with physical therapy. Pain control, denies and difficulties breathing cough or phlegm production. Notes Reviewed: Yes: Events from last night noted and discussed with Clinical Staff Current Medication List: Reviewed Currently: Reports: DIAZ, SOB, Reflux Sx DVT Prophylaxis: Yes - Physical Examination Vital Signs and I&O: Last Vital Signs Temp 98 F 06/23/16 15:50 Pulse 65 06/23/16 16:05 Resp 18 06/23/16 15:50 BP 120/55 L 06/23/16 15:50 Pulse Ox 92 06/23/16 15:50 Oxygen Pulse Oxygen Saturation 92 O2 Device Nasal Cannula Oxygen Flow Rate 2 Fraction of Inspired Oxygen ( FIO2) Intake & Output 06/20/16 06/21/16 06/22/16 06/23/16 23:59 23:59 23:59 23:59 Intake Total 4170 051 1245 480 Output Total 3125 1000 550 Balance 1100 -3025 204 -70 Patient's weight 108.771 kg 108.363 kg 108.227 kg General: Alert, Cooperative, Mild distress HEENT: Normal, PERRLA, EOMI, Anicteric Sclera Neck: Non-tender, Limited range of motion Lymphatics: Normal Respiratory: Normal - CTA (Clear to auscultation bilaterally, no wheezing,rales or rhonchi. No use of accessory muscles), Diminished, Rhonchi Cardiovascular: Regular rate, Normal S1, Normal S2, Murmurs GI: Normal bowel sounds, Soft, Non tender, No hepatospenomegaly, No masses, Obese Extremities/Musculoskeletal: Edema, DJD Skin: Warm,Dry and Intact, No rashes, No breakdown, No significant lesion Neurological: Normal speech, Cranial nerves 3-12 NL Psych/Mental Status: Anxious, Confused, Somnolent - Assessment (1) Metabolic encephalopathy Acute G93.41 - METABOLIC ENCEPHALOPATHY Comment/Plan: Continue supportive care, minimize sedation, avoid anticholinergics. Slowly improving (2) Urinary tract infection Acute N39.0 - URINARY TRACT INFECTION, SITE NOT SPECIFIED Qualifiers: Urinary tract infection type: acute cystitis Hematuria presence: without hematuria Qualified Code(s): N30.00 - Acute cystitis without hematuria Comment/Plan: Continue IV Rocephin . Urine culture showed contamination (3) Hypertension Chronic I10 - ESSENTIAL (PRIMARY) HYPERTENSION Qualifiers: Hypertension type: essential hypertension Qualified Code(s): I10 - Essential (primary) hypertension Comment/Plan: Continue home medications. Keep SBP less than 140 (4) Diabetes mellitus Active E11.9 - TYPE 2 DIABETES MELLITUS WITHOUT COMPLICATIONS Comment/Plan: .Continue ADA diet, monitor sugar continue sliding scale regular insulin . Blood sugar under control no hypoglycemia (5) Atrial fibrillation Acute I48.91 - UNSPECIFIED ATRIAL FIBRILLATION Comment/Plan: Continue home meds, keep K more than 4 magnesium more than 2 (6) CAD (coronary artery disease) Acute I25.10 - ATHSCL HEART DISEASE OF [place] CORONARY ARTERY W/O ANG PCTRS Qualifiers: Coronary Disease-Associated Artery/Lesion type: [place] artery [place] vs. transplanted heart: [place] heart Associated angina: without angina Qualified Code(s): I25.10 - Atherosclerotic heart disease of [place] coronary artery without angina pectoris Comment/Plan: No angina. Continue home meds. (7) Anemia Acute D64.9 - ANEMIA, UNSPECIFIED Qualifiers: Anemia type: unspecified type Qualified Code(s): D64.9 - Anemia, unspecified Comment/Plan: Monitor counts. Case Care Discussed with: Patient, Family, Nursing Staff, Physical Therapy, Rest Room Maid Education/Counseling Given To: Patient Education/Counseling Given Regarding: Diagnosis, Treatment, Prognosis, Follow Up Total Time: 40 min Critical Care: No Code: 03106 (12+)
[2016-06-23] MEDS: TRAZODONE 50 MG TAB PO SCH (20:08)
[2016-06-23] MEDS: CEFTRIAXONE 1 GM in D5W 100 ML IV SCH (22:09)
[2016-06-24] MEDS: PANTOPRAZOLE 40 MG TAB PO SCH (05:28)
[2016-06-24 07:49] VITALS: TEMP 98
[2016-06-24] MEDS: AMIODARONE 200 MG TAB PO SCH (08:14)
[2016-06-24] MEDS: VALSARTAN 160 MG TAB PO SCH (08:15)
[2016-06-24] MEDS: DULOXETINE 60 MG CAPSULE PO SCH (08:15)
[2016-06-24] MEDS: LEVETIRACETAM 250 MG TAB PO SCH (08:15)
[2016-06-24] MEDS: METHIMAZOLE 5 MG TAB PO SCH (08:16)
[2016-06-24] MEDS: ALLOPURINOL 100 MG TAB PO SCH (08:16)
[2016-06-24] MEDS: METOPROLOL (TOPROL-XL) 100 MG TAB PO SCH (08:16)
[2016-06-24] MEDS: OXYCODONE HCL 5 MG TABLET PO PRN (10:56)
[2016-06-24 10:57] VITALS: BP 139/70
--- NOTE | 2016-06-24 13:00 | PCM.DCS92 ---
- Final/Secondary Discharge Diagnosis (1) Metabolic encephalopathy Resolved G93.41 - METABOLIC ENCEPHALOPATHY Present on Admission: Yes Comment: Mentation back to normal patient fully alert awake oriented and interactive. (2) Urinary tract infection Acute N39.0 - URINARY TRACT INFECTION, SITE NOT SPECIFIED Present on Admission: Yes acute cystitis without hematuria N30.00 - Acute cystitis without hematuria Comment: Responded to IV Rocephin very well. Again urine culture showed contamination. Will continue IV Rocephin for 3 more days (3) Hypertension Chronic I10 - ESSENTIAL (PRIMARY) HYPERTENSION Present on Admission: Yes essential hypertension I10 - Essential (primary) hypertension Comment: Continue home medications. Keep SBP less than 140 (4) Diabetes mellitus Chronic E11.9 - TYPE 2 DIABETES MELLITUS WITHOUT COMPLICATIONS Present on Admission: Yes Comment: .Continue ADA diet, monitor sugar continue sliding scale regular insulin . Blood sugar under control no hypoglycemia (5) Atrial fibrillation Chronic I48.91 - UNSPECIFIED ATRIAL FIBRILLATION Present on Admission: Yes Comment: Continue home meds, keep K more than 4 magnesium more than 2 (6) CAD (coronary artery disease) Chronic I25.10 - ATHSCL HEART DISEASE OF [place] CORONARY ARTERY W/O ANG PCTRS Present on Admission: Yes [place] artery [place] heart without angina I25.10 - Atherosclerotic heart disease of [place] coronary artery without angina pectoris Comment: No angina. Continue home meds. (7) Anemia Chronic D64.9 - ANEMIA, UNSPECIFIED Present on Admission: Yes unspecified type D64.9 - Anemia, unspecified Comment: Monitor counts. Discharge Disposition: Senior Care Facility Discharge Condition: Improved Fuctional Discharge Status: Walker Assistance, Wheelchair Assistance, Fall Risk , Deconditioning Physician Follow up/Referrals: Hammad Gregory MD [Primary Care Provider] - One Week Home Medications / New Prescriptions: New Lactobacillus Acidophilus [Florajen] 460 mg PO DAILY #60 capsule Ceftriaxone [Rocephin] 1 gm IV DAILY #5 v Continue Ergocalciferol (Vitamin D2) [Vitamin D2 (ergocalciferol)] 50,000 units PO .QMONTH ON 1ST Nitroglycerin Sublingual Tab [NTG (NitroStat Sublingual Tab)] 1 tab SL [id number] PRN PRN Reason: Chest Pain Or Discomfort Furosemide [Lasix] 40 mg PO BID Pantoprazole Sodium [Protonix] 40 mg PO DAILY #30 tab Valsartan [Diovan] 160 mg PO DAILY Levetiracetam [Keppra] 500 mg PO BID Aspirin (Enteric Coated) [Ecotrin] 81 mg PO DAILY Trazodone HCl [Desyrel] 25 mg PO QHS Polyethylene Glycol 3350 [Miralax] 17 gm PO DAILY PRN PRN Reason: Constipation HydrALAZINE (Cardiovascular) [Apresoline] 50 mg PO DAILY Duloxetine [Cymbalta] 60 mg PO DAILY Allopurinol [Zyloprim] 100 mg PO DAILY Metoprolol Succinate (XL) [Toprol Xl] 100 mg PO DAILY METHIMAZOLE (hyperthyroid med) [Tapazole] 5 mg PO DAILY Wheat Dextrin [Benefiber] 1 gm PO DAILY Amiodarone [Cordarone, Pacerone] 200 mg PO .DAILY SEE COMMENTS Oxycodone Immediate Release [Oxycodone Immediate Release (OxyIR)] 5 mg PO Q4H PRN #90 tablet PRN Reason: Pain Alprazolam [Xanax] 0.5 mg PO BID PRN #90 tablet PRN Reason: Anxiety Discontinued Ciprofloxacin HCl [Cipro] 500 mg PO BID #20 tab O2 Device: Nasal Cannula Oxygen to be used after Discharge: Continuous Diet at Discharge: Cardiac, Heart Healthy, Low Salt, Diabetic, 2200 Calorie, High Fiber Activity: As Tolerated Call Office For: Worsening Symptoms, Fever over 101 F Discontinue use of:: Alcohol, All Illegal Substances, All Types of Tobacco - DC Summary Notes Hospital Course Note:: Discharge summary on patient named AUGUST VAZQUEZ admitted to [facility] on 06/20/16 by Geoff Bush MD. Date of discharge is []. Patient was initially brought to emergency room on June 20 for evaluation of diminished level responsiveness confusion and generalized weakness. No falls or accidents. Please refer to the admission note for further details. ED workup was undertaken; head CT showed no acute abnormality no stroke or hemorrhage, chest x-ray showed no effusion on pneumonia. Patient UA was positive and she was started on IV Rocephin. She has responded very well to this medication and her mentation has slowly improved and returned to baseline. By the time of discharge patient was fully alert awake oriented and interactive. Unfortunately urine culture showed contamination so no causative bacteria was ever identified. Outpatient regimen for chronic medical conditions was continued and during hospital stay she has remained hemodynamically stable. She was seen and evaluated by PT OT and was poorly motivated to work with them, by the time of discharge patient was able to walk short distance with a walker and with assistance, she continue required assistance with transfers. Due to hypoxia and evidence of fluid overload she required IV diuretic and responded to this medication very well by the time of discharge she was weaned off the oxygen. Her renal function and electrolytes were normal. It was felt that by June 24 patient has reached maximum benefit of inpatient therapy and in clinically stable improved condition she has been transferred to long term facility for PT and OT. Patient was kept abreast on clinical progression regular daily basis discharge plan discussed with the. Copy to . Total Time: 45min Code: 90133 (>30min.) - Physical Exam Vital Signs: Last Vital Signs Temp 98.0 F 06/24/16 12:51 Pulse 65 06/24/16 12:51 Resp 18 06/24/16 12:51 BP 139/70 06/24/16 12:51 Pulse Ox 92 06/24/16 10:36 Oxygen Pulse Oxygen Saturation 92 O2 Device Nasal Cannula Oxygen Flow Rate 2 Fraction of Inspired Oxygen ( FIO2) Constitutional: No apparent distress Oriented to: Time, Person, Place - HEENT Head: Normal (normocephalic,atraumatic, trachea midline) Eye: Normal (EOMI, Sclera white) Oropharynx: Normal (moist) ENT EAC: Normal Nose: No Symptoms Reported (without discharge or bleeding) - Respiratory/Cardiovascular Respiratory: Normal - CTA (Clear to auscultation bilaterally, no wheezing,rales or rhonchi. No use of accessory muscles), Diminished, Rhonchi Cardiovascular: Normal, Systolic murmur - GI Auscultation: Normal Palpation: Normal (soft, non distended and nontender) Tenderness: Non tender Rectal Exam: Deferred - Exam Deferred: Yes - Musculoskeletal Back: Normal Extremities: Normal (normal tone, no cyanosis or edema) - Integumentary Skin: Normal, Warm, Dry Lymphatics: Normal - Neurologic Memory Impaired: Short-term, Unable to Test (CONFUSED) Motor Function: Abnormal Cranial Nerve: Normal Cerebellar: Ataxia Mood Description: Anxious, Flat Thought: Coherent Perception: Normal
[2016-06-24 13:56] LABS: BLOOD UREA NITROGEN 18 MG/DL (7-17); CALCIUM 9.3 MG/DL (8.4-10.2); CALCULATED OSMOLALITY 271 MOs/Kg (270-290); CHLORIDE 100 mEq/L (98-107); GLUCOSE 161 mg/dL (70-99); SODIUM LEVEL 138 mEq/L (137-146)
[2016-06-24] MEDS ORDERED: SODIUM CHLORIDE 0.9% 3 ML FLUSH FLUSH PRN (14:19)
[2016-06-24 14:46] VITALS: PULSE 63
[2016-06-24] MEDS ORDERED: SODIUM CHLORIDE 0.9% 3 ML FLUSH FLUSH SCH (18:00)
== END 2016-06-24 15:55 | DRG 689 ==
LOC: ED 16:28 → PCU 23:17 → ED 23:53
PROVIDERS: ADMIT Internal Medicine; ATTEND Internal Medicine
PROC: 4A033R1 Measurement of Arterial Saturation, Peripheral, Percutaneous Approach (ICD-10-PCS; principal; 2016-06-20)
DX: N39.0 Urinary tract infection, site not specified (principal); G93.41 Metabolic encephalopathy; J81.1 Chronic pulmonary edema; E87.70 Fluid overload, unspecified; I10 Essential (primary) hypertension; E11.9 Type 2 diabetes mellitus without complications; D64.9 Anemia, unspecified; I48.91 Unspecified atrial fibrillation; I25.10 Atherosclerotic heart disease of native coronary artery without angina pectoris; R09.02 Hypoxemia; N20.0 Calculus of kidney; E78.00 Pure hypercholesterolemia, unspecified; M10.9 Gout, unspecified; M19.90 Unspecified osteoarthritis, unspecified site; E03.9 Hypothyroidism, unspecified; E66.01 Morbid (severe) obesity due to excess calories; F32.9 Major depressive disorder, single episode, unspecified; I25.2 Old myocardial infarction; Z90.710 Acquired absence of both cervix and uterus; Z86.73 Personal history of transient ischemic attack (TIA), and cerebral infarction without residual deficits; Z87.11 Personal history of peptic ulcer disease; Z79.82 Long term (current) use of aspirin; Z87.442 Personal history of urinary calculi; Z68.34 Body mass index [BMI] 34.0-34.9, adult
CPT/HCPCS: 36415; 36600; 51798; 70450; 71010; 80048; 80053; 81001; 82803; 83735; 83880; 84484; 85025; 85610; 85730; 87086; 93005; 96361; 96365; 96372; 96375; 97162; 99285; G0237; J0360; J0696; J1650; J1940; J2405; J3490; J7060